=== PATIENT | female | born 1955 | race Caucasian/White ===

== ENCOUNTER 2017-08-30 13:44 | Emergency (ER) | payer MEDICARE, OTHER ==
--- NOTE | 2017-08-30 14:34 | C.PDOC ---
History Of Present Illness 62 y/o female presents to ED with complaints of nasal congestion associated with productive cough, subjective fever, and diffused body aches that began 2 days ago. Patient states she did not get the flu shot. Denies diarrhea, nausea, or vomiting. Chief Complaint (Nursing): Cough, Cold, Congestion History Per: Patient History/Exam Limitations: no limitations Onset/Duration Of Symptoms: Days (2) Current Symptoms Are (Timing): Still Present Recent travel outside of the [place]: No Past Medical History Reviewed: Historical Data, Nursing Documentation, Vital Signs Vital Signs: Last Vital Signs Temp 99.3 F 08/30/17 15:53 Pulse 85 08/30/17 15:53 Resp 20 08/30/17 15:53 BP 130/90 08/30/17 15:53 Pulse Ox 97 08/30/17 16:49 - Medical History PMH: Arthritis, Back Problems, HTN Surgical History: No Surg Hx Family History: States: Unknown Family Hx - Social History Hx Tobacco Use: No Hx Alcohol Use: No Hx Substance Use: No - Immunization History Hx Tetanus Toxoid Vaccination: No Hx Influenza Vaccination: Yes Hx Pneumococcal Vaccination: No Review Of Systems Constitutional: Positive for: Fever. Negative for: Chills ENT: Positive for: Nose Congestion Respiratory: Positive for: Cough Gastrointestinal: Negative for: Nausea, Vomiting, Abdominal Pain, Diarrhea Genitourinary: Negative for: Dysuria Neurological: Negative for: Weakness, Numbness Physical Exam - Physical Exam Appears: Well, Non-toxic, No Acute Distress Skin: Normal Color, Warm, Dry Head: Atraumatic, Normacephalic Eye(s): bilateral: Normal Inspection Oral Mucosa: Moist Neck: Supple Chest: Symmetrical, No Tenderness Cardiovascular: Rhythm Regular Respiratory: Normal Breath Sounds, No Decreased Breath Sounds, No Rales, No Rhonchi, No Wheezing Gastrointestinal/Abdominal: Soft, No Tenderness, No Distention, No Guarding, No Rebound Neurological/Psych: Oriented x3, Normal Speech, Normal Cognition ED Course And Treatment O2 Sat by Pulse Oximetry: 97 (RA) Pulse Ox Interpretation: Normal - Other Rad CXR X-Ray: Viewed By Me, Read By Radiologist Interpretation: Chest x-ray two views. History: Infiltrate. Comparison: 2013. Findings: Patchy increased markings at the left lung base which may represent mild atelectasis and or infiltrate. Clinical correlation. Top normal heart size. Mild calcification at the aortic knob. Degenerative changes in the spine. Impression: Patchy increased markings at the left lung base which may represent mild atelectasis and or infiltrate. Clinical correlation. Medical Decision Making Medical Decision Making: Administered Motrin. Ordered CXR. Disposition - Disposition Referrals: [facility], [Non-Staff] - Disposition: HOME/ ROUTINE Disposition Time: 15:15 Condition: GOOD Additional Instructions: Thank you for letting us take care of you today. The emergency medical care you received today was directed at your acute symptoms. If you were prescribed any medication, please fill it and take as directed. It may take several days for your symptoms to resolve. Return to the Emergency Department if your symptoms worsen, do not improve, or if you have any other problems. Please contact your doctor or call one of the physicians/clinics you have been referred to that are listed on the Patient Visit Information form that is included in your discharge packet. Bring any paperwork you were given at discharge with you along with any medications you are taking to your follow up visit. Our treatment cannot replace ongoing medical care by a primary care provider (PCP) outside of the emergency department. Thank you for allowing the [facility] team to be part of your care today. Follow up with your primary care doctor in 2-3 days for re-evaluation and further management. Kizzy por dejarnos atenderlo hoy. La atencin mdica de emergencia que recibi hoy estaba dirigida a edith sntomas agudos. Si le prescribieron algn medicamento, llnelo y tome segn las indicaciones. Edith sntomas pueden tardar varios jarrell en resolverse. Regrese al Departamento de Emergencia si edith s ntomas empeoran, no mejoran o si tiene algn otro problema. Comunquese con goodwin mdico o llame a moira de los mdicos / clnicas a los que nelson sido referido que figura en el formulario de Informacin de visita del paciente que se incluye en goodwin paquete de hiram. Traiga todos los documentos que recibi al momento del hiram junto con los medicamentos que est tomando en goodwin visita de seguimiento. Nuestro tratamiento no puede reemplazar la atencin mdica en curso por parte de un proveedor de atencin primaria (PCP) fuera del departamento de emergencias. Kizzy por permitir que el equipo de [facility] sea parte de goodwin cuidado hoy. Jadyn un seguimiento con goodwin mdico de atencin primaria en 2-3 jarrell para dorota nueva evaluacin y administracin adicional. Prescriptions: Azithromycin [Zithromax] 250 mg PO DAILY #6 tab Ibuprofen [Motrin] 600 mg PO Q6 PRN #20 tab PRN Reason: Pain, Moderate (4-7) Oseltamivir Phosphate [Tamiflu] 75 mg PO BID #10 capsule Instructions: Upper Respiratory Infection (ED) Forms: Gen Discharge Inst Luxembourgish Print Language: SLOVENIAN - Clinical Impression Clinical Impression: Upper respiratory infection - Scribe Statement The provider has reviewed the documentation as recorded by the Scribe Noel Chaidez All medical record entries made by the Scribe were at my direction and personally dictated by me. I have reviewed the chart and agree that the record accurately reflects my personal performance of the history, physical exam, medical decision making, and the department course for this patient. I have also personally directed, reviewed, and agree with the discharge instructions and disposition.
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
[2017-08-30 15:56] VITALS: BP 130/90; PULSE 85; RESP 20; TEMP 99.3
[2017-08-30 16:02] VITALS: O2SAT 97
== END 2017-08-30 15:55 | disposition home or self-care (01) ==
LOC: C.ER 13:44
DX: J06.9 Acute upper respiratory infection, unspecified (principal); I10 Essential (primary) hypertension

== ENCOUNTER 2018-10-16 21:26 | Emergency (ER) | payer OTHER, MEDICARE ==
[2018-10-16 21:37] VITALS: TEMP 99.2
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
[2018-10-16] MEDS ORDERED: Tdap Vaccine 0.5 ml Vial (10-64 yrs) IM ONE ×2 (21:58→22:21)
[2018-10-16] MEDS ORDERED: Tramadol 25 mg PO STA (23:35)
[2018-10-17 01:28] VITALS: BP 142/79; PULSE 74; RESP 18
[2018-10-17 01:29] VITALS: O2SAT 99
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
== END 2018-10-17 01:34 | disposition home or self-care (01) ==
LOC: C.ER 21:26
DX: S01.01XA Laceration without foreign body of scalp, initial encounter (principal); V03.10XA Pedestrian on foot injured in collision with car, pick-up truck or van in traffic accident, initial encounter; M25.551 Pain in right hip; R07.81 Pleurodynia